=== PATIENT | female | born 1945 | race Caucasian/White ===

== ENCOUNTER → 2016-10-10 | Outpatient (CLI) | payer MEDICARE ==
[~2016-10-10] MED LIST: ALPR-475 PO; ALPR1TAB2 PO; ATOR10TA9 PO; CEFO1VIA PO; CELE100C PO; DOXY100T PO; ENOX80SY5 SQ; FLUO10CA13 PO; LEVO125C2 PO; METO25TA35 PO; NITR0.4T SL; PANT40TA3 PO; PRED20TA PO; RIVA20TA PO; TRAZ100T15 PO
== END | disposition home or self-care (01) ==
LOC: CFH 13:20
PROVIDERS: ATTEND Family Medicine
DX: M25.561 Pain in right knee (principal)

== ENCOUNTER → 2017-09-18 | Outpatient (CLI) | payer MEDICARE | END | disposition home or self-care (01) | LOC: RAD 12:05 | PROVIDERS: ATTEND Anesthesiology | DX: S32.020S Wedge compression fracture of second lumbar vertebra, sequela (principal) | CPT/HCPCS: 22515 ==

== ENCOUNTER 2017-10-10 07:52 | Day surgery (SDC) | payer MEDICARE ==
[~2017-10-10] VITALS: Ht 175.3 cm; Wt 86.9 kg
[2017-10-10 08:40] VITALS: BP 118/70
[2017-10-10] MEDS ORDERED: xarelto PO (08:48)
[2017-10-10] MEDS ORDERED: OXYC5TAB2 PO (08:48)
[2017-10-10] MEDS ORDERED: LIDOCAINE-MPF 2% ,5ML ONE ×2 (09:25→10:24)
[2017-10-10] MEDS ORDERED: NALOXONE 1 MG/ML, 2ML ONE (09:33)
[2017-10-10] MEDS ORDERED: MIDAZOLAM 1 MG/ML, 5ML ONE (09:33)
[2017-10-10] MEDS ORDERED: FENTANYL PF 100 MCG/2ML ONE (09:33)
[2017-10-10] MEDS ORDERED: FLUMAZENIL 0.1 MG/1 ML, 5ML ONE (09:33)
[2017-10-10] MEDS ORDERED: MEPERIDINE/PF 50 MG/ML ONE (09:35)
[2017-10-10] MEDS ORDERED: PROMETHAZINE 25 MG/ML, 1ML ONE (09:35)
== END 2017-10-10 15:30 | disposition home or self-care (01) ==
LOC: RAD 07:52 → OUT 15:30
PROVIDERS: ATTEND Anesthesiology
DX: M48.56XA Collapsed vertebra, not elsewhere classified, lumbar region, initial encounter for fracture (principal); Z87.01 Personal history of pneumonia (recurrent); Z87.891 Personal history of nicotine dependence; Z98.890 Other specified postprocedural states
CPT/HCPCS: 22511; 99156; 99157; J2175; J2250; J2550; J3010; J3490; J2310

== ENCOUNTER 2018-02-21 17:49 | Emergency (ER) | payer MEDICARE ==
[~2018-02-21] VITALS: Ht 177.8 cm; Wt 89.0 kg
[~2018-02-21 17:49] MED LIST changes: +OXYC5TAB2 PO; +TRAZ-137 PO; -TRAZ100T15 PO; +xarelto PO
[2018-02-21] MEDS ORDERED: SODIUM CHLORIDE FLUSH 10ML SYR IVF ONE (18:30)
[2018-02-21] MEDS: PLEASE ENTER HEIGHT AND WEIGHT MC SCH ×2 (18:35→19:36)
[2018-02-21 18:41] LABS: BASOPHILS # (AUTO) 0.02 x10^3/uL (0-0.1); BASOPHILS % (AUTO) 1 % (0-1); EOSINOPHILS # (AUTO) 0.03 x10^3/uL (0-0.4); EOSINOPHILS % (AUTO) 1 % (1-7); LYMPHOCYTES # (AUTO) 1.81 x10^3/uL (1-3.4); LYMPHOCYTES % (AUTO) 39 % (22-44); MD NO; MEAN CORPUSCULAR HEMOGLOBIN 33.9 pg (27.0-34.8); MEAN CORPUSCULAR HGB CONC 34.2 g/dL (32.4-35.8); MEAN CORPUSCULAR VOLUME 98.9 fL (80-100); MEAN PLATELET VOLUME 7.9 fL (7.4-10.4); MONOCYTES % (AUTO) 11 % (2-9); NEUTROPHILS # (AUTO) 2.26 x10^3/uL (1.8-6.8); NEUTROPHILS % (AUTO) 49 % (42-75); PLATELET COUNT 205 x10^3/uL (130-400); RED BLOOD COUNT 4.35 x10^6/uL (3.82-5.3); RED CELL DISTRIBUTION WIDTH 13.5 % (9.6-15.2)
[2018-02-21 18:46] LABS: INTERNATIONAL NORMALIZED RATIO 1.15 (0.93-1.1); PROTHROMBIN TIME 12.1 Seconds (9.6-11.5)
[2018-02-21 18:47] LABS: ALANINE AMINOTRANSFERASE 35 U/L (12-78); ALBUMIN 3.7 g/dL (3.4-5.0); ANION GAP 10 mmol/L (5-15); CALCIUM 8.6 mg/dL (8.5-10.1); CHLORIDE 105 mmol/L (98-107); CREATININE 0.44 mg/dL (0.55-1.02)
[2018-02-21 18:52] LABS: ALKALINE PHOSPHATASE 45 U/L (45-117); BILIRUBIN,TOTAL 0.7 mg/dL (0.2-1.0); TOTAL PROTEIN 6.7 g/dL (6.4-8.2); TROPONIN I < 0.015 ng/mL (0.000-0.045)
[2018-02-21 18:58] LABS: FREE T4 (FREE THYROXINE) 0.89 ng/dL (0.76-1.46); THYROID STIMULATING HORMONE 3.73 mIU/L (0.358-3.740)
[2018-02-21 20:03] VITALS: BP 151/78
== END 2018-02-21 20:06 | disposition home or self-care (01) ==
LOC: ED 19:54
DX: I48.2 Chronic atrial fibrillation (principal); F41.1 Generalized anxiety disorder; F32.9 Major depressive disorder, single episode, unspecified; Z86.39 Personal history of other endocrine, nutritional and metabolic disease; Z88.7 Allergy status to serum and vaccine
CPT/HCPCS: 36415; 71045; 80053; 84439; 84443; 84484; 85025; 85610; 85730; 93005; 99284

== ENCOUNTER → 2018-04-16 | Outpatient (CLI) | payer MEDICARE | END | disposition home or self-care (01) | LOC: CFH 12:39 | PROVIDERS: ATTEND Family Medicine | DX: Z12.31 Encounter for screening mammogram for malignant neoplasm of breast (principal); N95.8 Other specified menopausal and perimenopausal disorders | CPT/HCPCS: 77080; 77067 ==